=== PATIENT | female | born 1940 | race Caucasian/White ===

== ENCOUNTER 2022-03-08 04:36 | Inpatient (IN) ==
[2022-03-08] MEDS ORDERED: NS 0.9% 1000 ml BAG 1,000 ML IV ONE (05:48)
[2022-03-08 07:28] LABS: Urine Appearance Clear; Urine Blood Negative (Negative); Urine Color Yellow; Urine Ketones 1+ (15mg/dL) (Negative); Urine Nitrite Positive (Negative); Urine Protein 1+ (30 mg/dL) (Negative); Urine Urobilinogen 0.2 (Negative) (Negative)
[2022-03-08 07:29] LABS: Urine Bilirubin 1+ (Small) (Negative); Urine Glucose Negative (Negative)
[2022-03-08 07:30] LABS: Urine Specific Gravity 1.035 (1.002-1.030)
[2022-03-08 07:42] LABS: ABS Eosinophils 0.2 10^3/ul (0-0.6); ABS Lymphocytes 1.1 10^3/ul (1.0-4.8); ABS Monocytes 1.4 10^3/ul (0-0.8); ABS Neutrophils 5.2 10^3/ul (1.5-7.7); Eosinophil % 2.2 %; Hematocrit 35 % (35-47); Hemoglobin 11.7 g/dL (12.0-16.0); Lymphocyte % 13.5 %; Mean Corpuscular HGB Conc 33 g/dL (31-36); Mean Corpuscular Hemoglobin 31 pg (27-31); Mean Corpuscular Volume 94 fL (80-97); Mean Platelet Volume 6.9 fL (7.4-10.4); Platelet Count 324 10^3/uL (150-450); Red Blood Count 3.75 10^6 /uL (3.70-4.87); Red Cell Distribution Width 14 % (10-15); White Blood Count 7.9 10^3/uL (3.5-10.8)
[2022-03-08 07:53] LABS: Urine Bacteria 1+ (Absent); Urine Red Blood Cell 2+(6-10/hpf) (Absent); Urine Squamous Epithelial Cell Present (Absent); Urine White Blood Cell 3+(>20/hpf) (Absent)
[2022-03-08 08:26] LABS: Albumin/Globulin Ratio 1.3 (1-3); Globulin 2.4 g/dL (2-4); Total Bilirubin 1.2 mg/dL (0.2-1.0); Total Protein 5.4 g/dL (6.4-8.9)
[2022-03-08 08:29] LABS: Potassium 3.7 mmol/L (3.5-5.0)
[2022-03-08 08:44] LABS: CRP High Sensitivity 178.43 mg/L (<2.00)
[2022-03-08] MEDS ORDERED: Iohexol 350 (CONTRAST) 500 ML MDV IV ONE (11:00)
[2022-03-08 11:22] LABS: Erythrocyte Sed Rate 20 mm/Hr (0-29)
[2022-03-08 13:40] LABS: Body Fluid WBC 75219 /mcL
[2022-03-08 14:21] LABS: Body Fluid Mono 3 %; Body Fluid NRBC 2; Body Fluid Total Cells Counted 200
[2022-03-08 14:22] LABS: Body Fluid Appearance Cloudy; Body Fluid Color Yellow; Body Fluid Source Synovial Fluid
[2022-03-08] MEDS ORDERED: Ondansetron 4 mg VIAL 2 MG/ML 2 ml VIAL IV PRN (16:02)
[2022-03-08] MEDS ORDERED: Heparin DRIP 25,000 UNITS BAG 25,000 UNITS/500 ML BAG IV SCH (18:30)
[2022-03-08] MEDS ORDERED: Heparin 5000 UNITS/ML 1 mL VIAL IV SCH (19:00)
[2022-03-08] MEDS ORDERED: Vancomycin 1,250 MG in NS 0.9% 250 ml 250 ML IVPB ONE (21:39)
[2022-03-08] MEDS ORDERED: Vancomycin 1,500 MG in NS 0.9% 250 ml 250 ML IVPB ONE (21:57)
[2022-03-08] MEDS ORDERED: Heparin 5000 UNITS/ML 1 mL VIAL SUBCUT SCH (22:00)
[2022-03-08] MEDS ORDERED: Cefepime 2 GM in Dextrose 2 GM/50 ML BAG IV SCH (22:00)
[2022-03-08] MEDS ORDERED: Vancomycin per Pharmacy 1 EA NOTE FOLLOW UP SCH (22:00)
[2022-03-08] MEDS: Latanoprost 0.005% 2.5 ml BTL BOTH EYES SCH (23:50)
[2022-03-09 06:22] LABS: Hematocrit 36 % (35-47); Hemoglobin 11.9 g/dL (12.0-16.0); Mean Corpuscular HGB Conc 33 g/dL (31-36); Mean Corpuscular Hemoglobin 31 pg (27-31); Mean Corpuscular Volume 94 fL (80-97); Platelet Count 355 10^3/uL (150-450); Red Blood Count 3.89 10^6 /uL (3.70-4.87); Red Cell Distribution Width 14 % (10-15)
[2022-03-09 06:38] LABS: ABS Basophils 0.1 10^3/ul (0-0.2); ABS Eosinophils 0.4 10^3/ul (0-0.6); ABS Lymphocytes 0.5 10^3/ul (1.0-4.8); Eosinophil % 3.8 %; Lymphocyte % 4.9 %
[2022-03-09 06:51] LABS: C Reactive Protein 321.28 mg/L (<8.01); Calcium 7.9 mg/dL (8.6-10.3); Magnesium 1.5 mg/dL (1.9-2.7); Potassium 3.6 mmol/L (3.5-5.0); eGFR CKD-EPI 36.1 (>60)
[2022-03-09 08:47] LABS: Erythrocyte Sed Rate 59 mm/Hr (0-29)
[2022-03-09] MEDS ORDERED: Magnesium Sulfate 2 gm BAG 2 GM/50 ML BAG IVPB ONE (08:55)
[2022-03-09] MEDS: Hydrocortisone INJ 100 MG/2ML 2 ML VIAL IV SCH ×2 (10:06→16:38)
[2022-03-09] MEDS ORDERED: DESMOPRESSIN 0.01% ALT NARE SCH (11:00)
[2022-03-09] MEDS: Albuterol HFA INHALER 8 gm MDI INH PRN (12:34)
[2022-03-09] MEDS: CEFEPIME 2 GM in Dextrose 50 mL IV SCH (16:40)
[2022-03-09] MEDS ORDERED: fentaNYL 100 mcg/2 ml 50 MCG/ML VIAL ONE (20:50)
[2022-03-09] MEDS ORDERED: Midazolam 2 mg/2 ml VIAL 1 mg/ml 2 ml VIAL (2 mg) ONE (20:50)
[2022-03-09] MEDS ORDERED: Propofol 10 MG/ML 20 ML BTL ONE (20:52)
[2022-03-09] MEDS ORDERED: Lidocaine 2% PF 5 ML VIAL ONE (20:52)
[2022-03-09] MEDS ORDERED: Bupivacaine 0.25% SDV 30 ML ONE (21:12)
[2022-03-09] MEDS ORDERED: Vancomycin 1000 MG in NS 0.9% 250 ML IVPB SCH (21:30)
[2022-03-09] MEDS ORDERED: Ondansetron 4 mg VIAL 2 MG/ML 2 ml VIAL ONE (22:36)
[2022-03-09] MEDS ORDERED: Ondansetron 4 mg VIAL 2 MG/ML 2 ml VIAL IV PRN (22:48)
[2022-03-09] MEDS ORDERED: fentaNYL 100 mcg/2 ml 50 MCG/ML VIAL IV PRN (22:48)
[2022-03-09] MEDS ORDERED: Naloxone 0.4 mg VIAL 0.4 mg/ml 1 ml VIAL IV PRN (22:48)
[2022-03-09] MEDS: Vancomycin 750 MG in NS 0.9% 250 ML IVPB SCH (23:16)
[2022-03-10] MEDS: Latanoprost 0.005% 2.5 ml BTL BOTH EYES SCH ×2 (01:43→21:09)
[2022-03-10] MEDS: DESMOPRESSIN 0.01% ALT NARE SCH ×3 (01:43→21:09)
[2022-03-10] MEDS: Hydrocortisone INJ 100 MG/2ML 2 ML VIAL IV SCH ×4 (01:44→17:11)
[2022-03-10] MEDS: CEFEPIME 2 GM in Dextrose 50 mL IV SCH (03:44)
[2022-03-10] MEDS ORDERED: Heparin 5000 UNITS/ML 1 mL VIAL IV SCH (05:00)
[2022-03-10 05:45] LABS: ABS Lymphocytes 0.2 10^3/ul (1.0-4.8); ABS Monocytes 0.3 10^3/ul (0-0.8); ABS Neutrophils 8.3 10^3/ul (1.5-7.7); Hematocrit 34 % (35-47); Hemoglobin 11.1 g/dL (12.0-16.0); Lymphocyte % 2.7 %; Mean Corpuscular HGB Conc 33 g/dL (31-36); Mean Corpuscular Hemoglobin 31 pg (27-31); Mean Corpuscular Volume 93 fL (80-97); Mean Platelet Volume 6.8 fL (7.4-10.4); Platelet Count 361 10^3/uL (150-450); Red Blood Count 3.64 10^6 /uL (3.70-4.87); Red Cell Distribution Width 14 % (10-15); White Blood Count 8.8 10^3/uL (3.5-10.8)
[2022-03-10] MEDS ORDERED: Heparin DRIP 25,000 UNITS BAG 25,000 UNITS/500 ML BAG IV SCH (06:00)
[2022-03-10 06:05] LABS: C Reactive Protein 332.27 mg/L (<8.01); Calcium 7.9 mg/dL (8.6-10.3); Potassium 4.6 mmol/L (3.5-5.0); eGFR CKD-EPI 30.2 (>60)
[2022-03-10] MEDS ORDERED: Cefepime ADVAN 1 GM in NS 0.9% 50 ML 50 ML IVPB SCH (12:00)
[2022-03-10] MEDS: Cefepime 1 GM in Dextrose 1 GM/50 ML BAG IV SCH (17:11)
[2022-03-10] MEDS: Vancomycin 750 MG in NS 0.9% 250 ML IVPB SCH (21:14)
[2022-03-11] MEDS: Hydrocortisone INJ 100 MG/2ML 2 ML VIAL IV SCH ×4 (01:07→23:21)
[2022-03-11 05:33] LABS: ABS Lymphocytes 0.2 10^3/ul (1.0-4.8); ABS Monocytes 0.5 10^3/ul (0-0.8); ABS Neutrophils 11.8 10^3/ul (1.5-7.7); Hematocrit 33 % (35-47); Hemoglobin 10.8 g/dL (12.0-16.0); Lymphocyte % 1.8 %; Mean Corpuscular HGB Conc 33 g/dL (31-36); Mean Corpuscular Hemoglobin 30 pg (27-31); Mean Corpuscular Volume 92 fL (80-97); Mean Platelet Volume 6.6 fL (7.4-10.4); Platelet Count 392 10^3/uL (150-450); Red Blood Count 3.59 10^6 /uL (3.70-4.87); Red Cell Distribution Width 14 % (10-15); White Blood Count 12.5 10^3/uL (3.5-10.8)
[2022-03-11] MEDS: Cefepime 1 GM in Dextrose 1 GM/50 ML BAG IV SCH (05:42)
[2022-03-11 05:52] LABS: Calcium 8.5 mg/dL (8.6-10.3); Potassium 4.4 mmol/L (3.5-5.0); eGFR CKD-EPI 24.3 (>60)
[2022-03-11] MEDS: DESMOPRESSIN 0.01% ALT NARE SCH ×2 (08:36→19:49)
[2022-03-11] MEDS: NS 0.9% 1000 ml BAG 1,000 ML IV SCH ×2 (08:39→20:01)
[2022-03-11 09:39] LABS: C Reactive Protein 189.66 mg/L (<8.01)
[2022-03-11] MEDS ORDERED: Vancomycin Random Level NOTE FOLLOW UP ONE (13:00)
[2022-03-11] MEDS: Latanoprost 0.005% 2.5 ml BTL BOTH EYES SCH (19:49)
[2022-03-11] MEDS ORDERED: Vancomycin Trough Check NOTE FOLLOW UP ONE (21:00)
[2022-03-12] MEDS: Albuterol HFA INHALER 8 gm MDI INH PRN ×2 (02:56→06:30)
[2022-03-12] MEDS: cefTRIAXone 2 gm/50 mL D5W 2 GM/50 ML BAG IV SCH (05:40)
[2022-03-12 05:56] LABS: ABS Lymphocytes 0.3 10^3/ul (1.0-4.8); ABS Monocytes 0.6 10^3/ul (0-0.8); ABS Neutrophils 9.9 10^3/ul (1.5-7.7); Hematocrit 34 % (35-47); Lymphocyte % 2.6 %; Mean Corpuscular HGB Conc 33 g/dL (31-36); Mean Corpuscular Hemoglobin 30 pg (27-31); Mean Corpuscular Volume 93 fL (80-97); Mean Platelet Volume 6.9 fL (7.4-10.4); Nucleated Red Blood Cells % 0.1; Platelet Count 400 10^3/uL (150-450); Red Blood Count 3.65 10^6 /uL (3.70-4.87); Red Cell Distribution Width 14 % (10-15); White Blood Count 10.8 10^3/uL (3.5-10.8)
[2022-03-12] MEDS ORDERED: Cefepime 1 GM in Dextrose 1 GM/50 ML BAG IV SCH (06:00)
[2022-03-12 06:24] LABS: Calcium 8.7 mg/dL (8.6-10.3); Potassium 4.7 mmol/L (3.5-5.0); eGFR CKD-EPI 30.6 (>60)
[2022-03-12] MEDS: Hydrocortisone INJ 100 MG/2ML 2 ML VIAL IV SCH ×2 (09:28→17:20)
[2022-03-12] MEDS: DESMOPRESSIN 0.01% ALT NARE SCH ×2 (09:30→19:43)
[2022-03-12] MEDS: Latanoprost 0.005% 2.5 ml BTL BOTH EYES SCH (19:43)
[2022-03-13] MEDS: Hydrocortisone INJ 100 MG/2ML 2 ML VIAL IV SCH ×3 (00:20→20:38)
[2022-03-13] MEDS: Albuterol HFA INHALER 8 gm MDI INH PRN (01:16)
[2022-03-13] MEDS: cefTRIAXone 2 gm/50 mL D5W 2 GM/50 ML BAG IV SCH (05:36)
[2022-03-13] MEDS ORDERED: Albuterol/Ipratropium NEB.SOL (2.5/0.5 MG) 3 ML NEB.SOLN INH PRN (05:49)
[2022-03-13 07:22] LABS: ABS Lymphocytes 0.2 10^3/ul (1.0-4.8); ABS Monocytes 0.8 10^3/ul (0-0.8); ABS Neutrophils 8.8 10^3/ul (1.5-7.7); Hematocrit 34 % (35-47); Hemoglobin 11.3 g/dL (12.0-16.0); Mean Corpuscular HGB Conc 33 g/dL (31-36); Mean Corpuscular Hemoglobin 30 pg (27-31); Mean Corpuscular Volume 92 fL (80-97); Nucleated Red Blood Cells % 0.1; Platelet Count 433 10^3/uL (150-450); Red Blood Count 3.71 10^6 /uL (3.70-4.87); Red Cell Distribution Width 14 % (10-15); White Blood Count 9.9 10^3/uL (3.5-10.8)
[2022-03-13] MEDS ORDERED: Furosemide 40 mg/4 ml IV VIAL IV SLOW PU ONE ×2 (07:43→15:41)
[2022-03-13 08:09] LABS: Calcium 8.7 mg/dL (8.6-10.3); Potassium 4.7 mmol/L (3.5-5.0); eGFR CKD-EPI 34.9 (>60)
[2022-03-13 08:25] LABS: Free T4 0.71 ng/dL (0.61-1.12)
[2022-03-13] MEDS: DESMOPRESSIN 0.01% ALT NARE SCH ×2 (08:55→20:37)
[2022-03-13] MEDS: Latanoprost 0.005% 2.5 ml BTL BOTH EYES SCH (20:36)
[2022-03-14] MEDS: cefTRIAXone 2 gm/50 mL D5W 2 GM/50 ML BAG IV SCH (05:26)
[2022-03-14] MEDS: Hydrocortisone INJ 100 MG/2ML 2 ML VIAL IV SCH ×3 (10:14→19:57)
[2022-03-14 10:19] LABS: C Reactive Protein 54.67 mg/L (<8.01)
[2022-03-14] MEDS: DESMOPRESSIN 0.01% ALT NARE SCH ×2 (10:28→20:04)
[2022-03-14 11:08] LABS: Calcium 8.9 mg/dL (8.6-10.3); Potassium 3.6 mmol/L (3.5-5.0); eGFR CKD-EPI 36.1 (>60)
[2022-03-14 12:34] LABS: Venous Bicarbonate HCO3 34.5 mmol/L (24-28)
[2022-03-14] MEDS ORDERED: Furosemide 40 mg/4 ml IV VIAL IV SLOW PU ONE (18:50)
[2022-03-14] MEDS: Latanoprost 0.005% 2.5 ml BTL BOTH EYES SCH (20:04)
[2022-03-15] MEDS: cefTRIAXone 2 gm/50 mL D5W 2 GM/50 ML BAG IV SCH (06:08)
[2022-03-15] MEDS: Hydrocortisone INJ 100 MG/2ML 2 ML VIAL IV SCH ×2 (09:23→21:33)
[2022-03-15] MEDS: DESMOPRESSIN 0.01% ALT NARE SCH ×2 (09:29→21:29)
[2022-03-15] MEDS: Latanoprost 0.005% 2.5 ml BTL BOTH EYES SCH (21:30)
[2022-03-16] MEDS: cefTRIAXone 2 gm/50 mL D5W 2 GM/50 ML BAG IV SCH (05:39)
[2022-03-16 06:34] LABS: C Reactive Protein 14.94 mg/L (<8.01)
[2022-03-16] MEDS: DESMOPRESSIN 0.01% ALT NARE SCH ×2 (08:10→20:13)
[2022-03-16 08:51] LABS: Calcium 8.5 mg/dL (8.6-10.3); Potassium 3.5 mmol/L (3.5-5.0); eGFR CKD-EPI 50.4 (>60)
[2022-03-16] MEDS: Latanoprost 0.005% 2.5 ml BTL BOTH EYES SCH (20:13)
[2022-03-17] MEDS: cefTRIAXone 2 gm/50 mL D5W 2 GM/50 ML BAG IV SCH (05:37)
[2022-03-17] MEDS ORDERED: Hydrocortisone INJ 100 MG/2ML 2 ML VIAL ONE (08:22)
[2022-03-17] MEDS ORDERED: NS 0.9% 1000 ml BAG 1,000 ML IV ONE (08:22)
[2022-03-17] MEDS ORDERED: Hydrocortisone INJ 100 MG/2ML 2 ML VIAL IV ONE (08:22)
[2022-03-17] MEDS: DESMOPRESSIN 0.01% ALT NARE SCH ×2 (10:06→21:47)
[2022-03-17 11:03] LABS: Hematocrit 41 % (35-47); Hemoglobin 13.9 g/dL (12.0-16.0); Mean Corpuscular HGB Conc 34 g/dL (31-36); Mean Corpuscular Hemoglobin 31 pg (27-31); Mean Corpuscular Volume 92 fL (80-97); Mean Platelet Volume 7.8 fL (7.4-10.4); Platelet Count 499 10^3/uL (150-450); Red Blood Count 4.46 10^6 /uL (3.70-4.87); Red Cell Distribution Width 14 % (10-15); White Blood Count 14.3 10^3/uL (3.5-10.8)
[2022-03-17 11:17] LABS: Calcium 8.8 mg/dL (8.6-10.3); Potassium 2.9 mmol/L (3.5-5.0); eGFR CKD-EPI 45.4 (>60)
[2022-03-17] MEDS ORDERED: Potassium Chlor 20 meq TAB.ER PO ONE (12:22)
[2022-03-17] MEDS: Latanoprost 0.005% 2.5 ml BTL BOTH EYES SCH (21:47)
[2022-03-18] MEDS: cefTRIAXone 2 gm/50 mL D5W 2 GM/50 ML BAG IV SCH (05:43)
[2022-03-18 06:16] LABS: ABS Eosinophils 0.2 10^3/ul (0-0.6); ABS Lymphocytes 0.9 10^3/ul (1.0-4.8); ABS Monocytes 1.1 10^3/ul (0-0.8); ABS Neutrophils 9.1 10^3/ul (1.5-7.7); Eosinophil % 2.1 %; Hematocrit 36 % (35-47); Hemoglobin 12.5 g/dL (12.0-16.0); Lymphocyte % 8.2 %; Mean Corpuscular HGB Conc 35 g/dL (31-36); Mean Corpuscular Hemoglobin 32 pg (27-31); Mean Corpuscular Volume 91 fL (80-97); Mean Platelet Volume 7.7 fL (7.4-10.4); Nucleated Red Blood Cells % 0.1; Platelet Count 418 10^3/uL (150-450); Red Blood Count 3.96 10^6 /uL (3.70-4.87); Red Cell Distribution Width 14 % (10-15); White Blood Count 11.5 10^3/uL (3.5-10.8)
[2022-03-18 06:37] LABS: Anion Gap 6 mmol/L (2-11); Blood Urea Nitrogen 30 mg/dL (6-24); CO2 Carbon Dioxide 36 mmol/L (22-32); Calcium 8.6 mg/dL (8.6-10.3); Chloride 98 mmol/L (101-111); Glucose 121 mg/dL (70-100); Potassium 3.1 mmol/L (3.5-5.0); Sodium 140 mmol/L (135-145); eGFR CKD-EPI 52.1 (>60)
[2022-03-18] MEDS ORDERED: Potassium Chloride LIQUID 20 MEQ/15 ML LIQUID PO ONE (08:05)
[2022-03-18] MEDS: DESMOPRESSIN 0.01% ALT NARE SCH ×2 (08:05→20:47)
[2022-03-18 11:13] LABS: C Reactive Protein 119.44 mg/L (<8.01)
[2022-03-18] MEDS ORDERED: Vancomycin per Pharmacy 1 EA NOTE FOLLOW UP PRN (13:54)
[2022-03-18] MEDS ORDERED: Vancomycin 1,000 MG in NS 0.9% 250 ml 250 ML IVPB ONE (14:00)
[2022-03-18 14:18] LABS: Rheumatoid Factor < 10 IU/mL (<15)
[2022-03-18] MEDS: Nystatin TOP POWDER 15 GM BTL TOPICAL SCH ×2 (15:31→20:46)
[2022-03-18] MEDS: Latanoprost 0.005% 2.5 ml BTL BOTH EYES SCH (20:46)
[2022-03-19] MEDS: cefTRIAXone 2 gm/50 mL D5W 2 GM/50 ML BAG IV SCH (04:57)
[2022-03-19] MEDS: DESMOPRESSIN 0.01% ALT NARE SCH (11:17)
[2022-03-19 11:44] VITALS: BP 123/59
[2022-03-19 13:10] LABS: Rapid COVID-19 Molecular Undetected (Undetected)
[2022-03-19] MEDS ORDERED: Vancomycin 1000 MG in NS 0.9% 250 ML IVPB SCH (14:00)
[2022-03-21] MEDS ORDERED: Vancomycin Trough Check NOTE FOLLOW UP ONE (13:30)
[2022-03-21 14:52] LABS: Cyclic Citrullinated Pept IgG <15.6 U
== END 2022-03-19 15:10 | disposition home or self-care (01) | DRG 501 ==
LOC: ED 04:36 → EDHOLD 16:03 → SUATTDRO 16:03 → EDHOLD 21:05 → MED 21:43
PROVIDERS: ADMIT Hospitalist; ATTEND Hospitalist

== ENCOUNTER 2023-07-01 19:00 | Inpatient (IN) ==
[2023-07-01] MEDS ORDERED: Albuterol HFA INHALER 8 gm MDI INH PRN (22:45)
[2023-07-01] MEDS ORDERED: Heparin 5000 UNITS/ML 1 mL VIAL SUBCUT ONE (23:01)
[2023-07-01 23:35] LABS: ABS Basophils 0.3 10^3/uL (0.0-0.1); ABS Lymphocytes 0.5 10^3/uL (1.0-4.8); ABS Neutrophils 12.9 10^3/uL (1.5-7.6); ABS Nucleated RBC 0.01 10^3/ul; Hematocrit 34.1 % (35-45); Hemoglobin 11.2 g/dL (11.5-14.3); Lymphocyte % 3.3 %; Mean Corpuscular Hemoglobin 28.6 pg (27-33); Mean Corpuscular Volume 86.6 fL (80-97); Mean Platelet Volume 6.8 fL (7.5-11.2); Platelet Count 504 10^3/uL (150-450); Red Blood Count 3.93 10^6/uL (3.63-4.92); Red Cell Distribution Width 17.2 % (12-17); White Blood Count 14.7 10^3/uL (3.8-11.8)
[2023-07-01 23:38] LABS: Activated Partial Thrombo Time 35.4 seconds (26.0-38.0); INR 2.16 (0.83-1.13)
[2023-07-01 23:50] LABS: Creatinine, Serum 1.08 mg/dL (0.51-0.95); eGFR CKD-EPI 50.7 (>60)
[2023-07-02] MEDS ORDERED: cefTRIAXone 1 gm/50 mL D5W 1 GM/50 ML BAG IV SCH ×2 (00:15→09:00)
[2023-07-02] MEDS ORDERED: Vancomycin per Pharmacy 1 EA NOTE FOLLOW UP SCH ×2 (01:00→11:00)
[2023-07-02] MEDS ORDERED: Vancomycin 1,250 MG in NS 0.9% 250 ml 250 ML IVPB ONE (02:00)
[2023-07-02 09:09] LABS: Calcium 9.1 mg/dL (8.6-10.3); Potassium 4.2 mmol/L (3.5-5.0); eGFR CKD-EPI 55.6 (>60)
[2023-07-02] MEDS ORDERED: NS 0.9% 1000 ml BAG 1,000 ML IV SCH (10:15)
[2023-07-02 10:38] LABS: Hematocrit 33.6 % (35-45); Mean Corpuscular Hemoglobin 28.6 pg (27-33); Mean Corpuscular Hgb Conc 32.8 g/dL (31-36); Mean Corpuscular Volume 87.4 fL (80-97); Mean Platelet Volume 7.1 fL (7.5-11.2); Platelet Count 530 10^3/uL (150-450); Red Blood Count 3.85 10^6/uL (3.63-4.92); Red Cell Distribution Width 17.1 % (12-17); White Blood Count 13.1 10^3/uL (3.8-11.8)
[2023-07-02] MEDS: Desmopressin 0.01% NASAL 5 ML BTL BOTH NARES SCH ×3 (11:43→21:00)
[2023-07-03] MEDS ORDERED: Vancomycin 1000 MG in NS 0.9% 250 ML IVPB SCH (06:00)
[2023-07-03 06:07] LABS: Hematocrit 32.1 % (35-45); Hemoglobin 10.6 g/dL (11.5-14.3); Mean Corpuscular Hemoglobin 28.7 pg (27-33); Mean Corpuscular Hgb Conc 33.1 g/dL (31-36); Mean Corpuscular Volume 86.6 fL (80-97); Mean Platelet Volume 6.6 fL (7.5-11.2); Platelet Count 456 10^3/uL (150-450); Red Blood Count 3.71 10^6/uL (3.63-4.92); Red Cell Distribution Width 17.3 % (12-17); White Blood Count 8.8 10^3/uL (3.8-11.8)
[2023-07-03 06:29] LABS: Albumin 3.2 g/dL (3.2-5.2); Albumin/Globulin Ratio 1.4 (1-3); Calcium 8.9 mg/dL (8.6-10.3); Creatinine, Serum 0.89 mg/dL (0.51-0.95); Globulin 2.3 g/dL (2-4); Potassium 3.5 mmol/L (3.5-5.0); Total Bilirubin 0.6 mg/dL (0.2-1.0); Total Protein 5.5 g/dL (6.4-8.9); eGFR CKD-EPI 63.9 (>60)
[2023-07-03] MEDS: Desmopressin 0.01% NASAL 5 ML BTL BOTH NARES SCH (08:39)
[2023-07-03 10:46] VITALS: BP 149/67
[2023-07-05] MEDS ORDERED: Vancomycin Trough Check NOTE FOLLOW UP ONE (05:30)
== END 2023-07-03 11:50 | disposition home or self-care (01) | DRG 603 ==
LOC: SUATTDRO 19:00 → SSU 19:00
PROVIDERS: ADMIT Internal Medicine; ATTEND Internal Medicine